=== PATIENT | female | born 1940 | race Caucasian/White ===

== ENCOUNTER 2017-09-25 15:19 | Emergency (ER) | payer OTHER, MEDICAID ==
[~2017-09-25] VITALS: Ht 157.5 cm; Wt 59.9 kg
[~2017-09-25 15:19] MED LIST: ATEN50TA PO; ATOR80TA63 PO; CLOP75TA2 PO; DIGO125T4 PO; DILT60TA3 PO; GLU850 PO; HYDR12.5 PO; LOP600 PO; LOSA100T11 PO; OMEP40CA33 PO; SITA100T7 PO
[2017-09-25 15:24] VITALS: BP_SYST 163
[2017-09-25 17:10] VITALS: BP_SYST 145
== END 2017-09-25 17:10 | disposition home or self-care (01) ==
LOC: SED 15:19
DX: B02.9 Zoster without complications (principal); E11.9 Type 2 diabetes mellitus without complications; I10 Essential (primary) hypertension; K21.9 Gastro-esophageal reflux disease without esophagitis; E78.00 Pure hypercholesterolemia, unspecified; I48.91 Unspecified atrial fibrillation; Z79.899 Other long term (current) drug therapy; Z86.73 Personal history of transient ischemic attack (TIA), and cerebral infarction without residual deficits
CPT/HCPCS: 99283

== ENCOUNTER 2017-10-20 19:06 | Emergency (ER) | payer OTHER, MEDICAID ==
[~2017-10-20] VITALS: Ht 157.5 cm; Wt 64.4 kg
[2017-10-20 19:29] VITALS: BP_SYST 138
--- NOTE | 2017-10-20 20:29 | NUR ---
PT TO BED 4 WITH FAMILY
--- NOTE | 2017-10-20 20:35 | NUR ---
Pt is alert and oriented. Pt C/O cough, mild fever, nasal congestion/runny nose and headache. Pain stated as 3/10. Denies any nausea, vomitiing or diarrhea. No signs of SOB or acute distress noted. Will continue to monitor.
[2017-10-20] MEDS ORDERED: IPRATROPIUM/ALBUTEROL SULFATE 3 ML AMPUL.NEB INH ONE (20:45)
--- NOTE | 2017-10-20 20:45 | NUR ---
ER MD DE LA PAZ AT BEDSIDE EXAMINING PATIENT.
[2017-10-20] MEDS ORDERED: IBUPROFEN 800 MG TABLET PO ONE (21:15)
[2017-10-20 21:20] VITALS: BP_SYST 133
--- NOTE | 2017-10-20 21:20 | NUR ---
Patient given written and verbal discharge instructions and verbalizes understanding. ER MD discussed with patient the results and treatment provided. Patient in stable condition. ID arm band removed. Rx of Zyrtec, azithromycin, and promethazine given. Patient educated on pain management and to follow up with PMD. Pain Scale 1/10. Opportunity for questions provided and answered.
== END 2017-10-20 21:20 | disposition home or self-care (01) ==
LOC: SED 19:06
DX: J32.9 Chronic sinusitis, unspecified (principal); J06.9 Acute upper respiratory infection, unspecified; E11.9 Type 2 diabetes mellitus without complications; K21.9 Gastro-esophageal reflux disease without esophagitis; I10 Essential (primary) hypertension; E78.00 Pure hypercholesterolemia, unspecified; I48.91 Unspecified atrial fibrillation; Z86.73 Personal history of transient ischemic attack (TIA), and cerebral infarction without residual deficits; Z79.899 Other long term (current) drug therapy
CPT/HCPCS: 71045; 82962; 94640; 99283

== ENCOUNTER 2021-05-21 15:55 | Emergency (ER) | payer OTHER, MEDICAID ==
[~2021-05-21] VITALS: Ht 157.5 cm; Wt 64.4 kg
[2021-05-21 15:55] VITALS: BP_SYST 160
[~2021-05-21 15:55] MED LIST changes: +ATOR-1 PO; -ATOR80TA63 PO; +DIGO-31 PO; -DIGO125T4 PO; -LOSA100T11 PO; +LOSA100T3 PO; +OMEP40CA20 PO; -OMEP40CA33 PO; +SITA100T11 PO; -SITA100T7 PO
--- NOTE | 2021-05-21 16:05 | NUR ---
Placed in room 2 . Placed on night monitor, blood pressure machine and pulse oximeter. To gown for exam. Side rails up.
--- NOTE | 2021-05-21 16:05 | NUR ---
Pt bib ambulance BLS with complaint of generalized weakness Xtoday. Pt is AAOX4 speaking full sentences breathing is even and unlabored. Pt resting in gurney attached to monitor BP elevated 160/76.
--- NOTE | 2021-05-21 16:06 | NUR ---
ER at bedside examining patient.
--- NOTE | 2021-05-21 16:13 | NUR ---
Blood collected and sent to lab.
--- NOTE | 2021-05-21 16:13 | NUR ---
# 20 gauge angiocath placed to LFA. Use of asceptic technique. Opsite placed over site. Blood return noted. Blood for lab drawn from site. Flushed with 10 cc of normal saline. No evidence of infiltration noted. Patient tolerated well.
--- NOTE | 2021-05-21 16:26 | NUR ---
ambulated to bathroom with no difficulty denies pain, sates just a little dizzy
[2021-05-21 16:33] LABS: BASOPHILS % (AUTO) 0.3 % (0.0-2.0); EOSINOPHILS # (AUTO) 0.1 K/uL (0.0-0.4); EOSINOPHILS % (AUTO) 1.5 % (0.0-4.0); HEMATOCRIT 33.5 % (36-48); HEMOGLOBIN 11.3 g/dL (12.0-16.0); LYMPHOCYTES # (AUTO) 1.5 K/uL (1.0-5.5); LYMPHOCYTES % (AUTO) 26.2 % (20.5-51.5); MEAN CORPUSCULAR HEMOGLOBIN 29 pg (27-31); MEAN CORPUSCULAR HGB CONC 34 % (32-36); MEAN CORPUSCULAR VOLUME 86 fL (79.0-98.0); MONOCYTES # (AUTO) 0.4 K/uL (0.0-1.0); MONOCYTES % (AUTO) 7.6 % (1.7-9.3); NEUTROPHILS # (AUTO) 3.8 K/uL (1.8-7.7); NEUTROPHILS % (AUTO) 64.4 % (40.0-70.0); PLATELET COUNT (AUTO) 264 K/uL (130-430); RED BLOOD CELL COUNT(AUTO) 3.88 MIL/uL (4.2-6.2); RED CELL DISTRIBUTION WIDTH 14.2 % (9.0-15.0); WHITE BLOOD COUNT (AUTO) 5.9 K/uL (4.8-10.8)
[2021-05-21 16:45] LABS: ANION GAP 9 (5-15); CALCIUM 9.3 mg/dL (8.4-11.0); CHLORIDE 102 mmol/L (98-107); CREATININE 1.15 mg/dL (0.55-1.30); GLUCOSE 97 mg/dL (70-99); POTASSIUM 3.6 mmol/L (3.5-5.1); SODIUM SERUM 142 mmol/L (136-145); UREA NITROGEN, BLOOD 25 mg/dL (8-21)
[2021-05-21 16:54] LABS: ALANINE AMINOTRANSFERASE 30 U/L (12-78); ALBUMIN 3.8 g/dL (3.4-4.8); ASPARTATE AMINOTRANSFERASE 32 U/L (10-37); TOTAL BILIRUBIN 0.6 mg/dL (0.0-1.0)
[2021-05-21 17:01] LABS: BILIRUBIN,URINE NEGATIVE (NEGATIVE); BLOOD, URINE NEGATIVE (NEGATIVE); CLARITY/URINE CLEAR (CLEAR); COLOR,URINE YELLOW (YELLOW); GLUCOSE,URINE NEGATIVE (NEGATIVE); KETONES,URINE NEGATIVE (NEGATIVE); LEUKOCYTE ESTERASE ,URINE NEGATIVE (NEGATIVE); NITRITE, URINE NEGATIVE (NEGATIVE); PROTEIN URINE NEGATIVE (NEGATIVE); UROBILINOGEN,URINE 0.2 (0.2-1.0)
--- NOTE | 2021-05-21 19:05 | NUR ---
Received report from Clau GOEL.
[2021-05-21 19:40] VITALS: BP_SYST 128
--- NOTE | 2021-05-21 19:40 | NUR ---
Patient given written and verbal discharge instructions and verbalizes understanding. ER MD discussed with patient the results and treatment provided. Patient in stable condition. ID arm band removed. IV catheter removed intact and dressing applied, no active bleeding. Rx of NONE given. Patient educated on pain management and to follow up with PMD. Pain Scale 0/10. Opportunity for questions provided and answered. Medication side effect fact sheet provided.
== END 2021-05-21 19:40 | disposition home or self-care (01) ==
LOC: SED 15:55
DX: R55 Syncope and collapse (principal); J32.9 Chronic sinusitis, unspecified; I10 Essential (primary) hypertension; E11.9 Type 2 diabetes mellitus without complications; K21.9 Gastro-esophageal reflux disease without esophagitis; E78.00 Pure hypercholesterolemia, unspecified; Z79.84 Long term (current) use of oral hypoglycemic drugs; Z79.899 Other long term (current) drug therapy
CPT/HCPCS: 36415; 70450-TC; 80053; 81003; 84484; 85025; 93005; 99285

== ENCOUNTER 2023-08-17 08:41 | Emergency (ER) | payer OTHER, MEDICAID ==
[~2023-08-17] VITALS: Ht 157.5 cm; Wt 68.0 kg
[~2023-08-17 08:41] MED LIST changes: +LOSA-415 PO; -LOSA100T3 PO
[2023-08-17 08:53] VITALS: BP_SYST 153; PULSE 59; RESP 13; TEMP 97.3; O2SAT 97
[2023-08-17 10:40] LABS: BASOPHILS % (AUTO) 0.4 % (0.0-2.0); EOSINOPHILS % (AUTO) 0.6 % (0.0-4.0); HEMATOCRIT 35.2 % (36-48); HEMOGLOBIN 11.5 g/dL (12.0-16.0); LYMPHOCYTES # (AUTO) 1.4 K/uL (1.0-5.5); LYMPHOCYTES % (AUTO) 24.6 % (20.5-51.5); MEAN CORPUSCULAR HEMOGLOBIN 28 pg (27-31); MEAN CORPUSCULAR HGB CONC 33 % (32-36); MEAN CORPUSCULAR VOLUME 86 fL (79.0-98.0); MONOCYTES # (AUTO) 0.5 K/uL (0.0-1.0); MONOCYTES % (AUTO) 8.3 % (1.7-9.3); NEUTROPHILS # (AUTO) 3.8 K/uL (1.8-7.7); NEUTROPHILS % (AUTO) 66.1 % (40.0-70.0); PLATELET COUNT (AUTO) 233 K/uL (130-430); RED BLOOD CELL COUNT(AUTO) 4.08 MIL/uL (4.2-6.2); RED CELL DISTRIBUTION WIDTH 14.6 % (9.0-15.0); WHITE BLOOD COUNT (AUTO) 5.7 K/uL (4.8-10.8)
[2023-08-17 10:59] LABS: ANION GAP 11 (5-15); CALCIUM 9.9 mg/dL (8.4-11.0); CARBON DIOXIDE 28 mmol/L (23-29); CHLORIDE 101 mmol/L (98-107); CREATININE 1.15 mg/dL (0.55-1.30); GLUCOSE 136 mg/dL (74-106); POTASSIUM 3.2 mmol/L (3.5-5.1); SODIUM SERUM 140 mmol/L (136-145); UREA NITROGEN, BLOOD 21 mg/dL (8-21)
[2023-08-17] MEDS ORDERED: POTA-195 PO (11:06)
[2023-08-17 11:11] VITALS: BP_SYST 138; PULSE 95; RESP 17; TEMP 97.2; O2SAT 95
== END 2023-08-17 11:12 | disposition home or self-care (01) ==
LOC: SED 08:41
DX: K52.9 Noninfective gastroenteritis and colitis, unspecified (principal); I10 Essential (primary) hypertension; E11.9 Type 2 diabetes mellitus without complications; K21.9 Gastro-esophageal reflux disease without esophagitis; E78.00 Pure hypercholesterolemia, unspecified; Z79.899 Other long term (current) drug therapy
CPT/HCPCS: 36415; 80048; 85025; 99283